=== PATIENT | female | born 2005 | race Caucasian/White ===

== ENCOUNTER 2023-11-23 20:43 | Outpatient (CLI) | payer OTHER, SELFPAY | END 2023-11-23 20:44 | disposition home or self-care (01) | LOC: AMB 11-27 03:33 | PROVIDERS: Visit Provider Family Medicine | DX: F29 Unspecified psychosis not due to a substance or known physiological condition (principal) | CPT/HCPCS: A0425; A0427 ==

== ENCOUNTER 2024-09-24 21:59 | Outpatient (CLI) | payer OTHER, SELFPAY | END 2024-09-24 22:00 | disposition home or self-care (01) | LOC: AMB 09-25 14:21 | PROVIDERS: Visit Provider Family Medicine | DX: R45.851 Suicidal ideations (principal) | CPT/HCPCS: A0425; A0429 ==